=== PATIENT | female | born 1975 | race Caucasian/White ===

== ENCOUNTER 2016-09-28 12:10 | Emergency (ER) | payer OTHER ==
--- NOTE | 2016-09-28 12:35 | CPEKG ---
Heart Rate: 60 RR Interval: 1000 P-R Interval: 144 QRSD Interval: 84 QT Interval: 428 QTC Interval: 428 P Froid: -12 QRS Froid: 28 T Wave Froid: 1 EKG Severity - NORMAL ECG - EKG Impression: SINUS RHYTHM Electronically Signed By: Srini Burrell 28-Sep-2016 14:02:42
--- NOTE | 2016-09-28 12:41 | EDPHY ---
H & P Stated Complaint: Pain in upper mid back, SOB since Wednesday morning. Time Seen by Provider: 09/28/16 12:41 HPI/ROS: CHIEF COMPLAINT: Back pain, dyspnea HISTORY OF PRESENT ILLNESS: The patient presents to the ED for evaluation of mid thoracic back pain for the past several days. The patient has been having associated positional dyspnea with the symptoms as well. The patient denies pleuritic chest pain, asymmetric calf pain or swelling, prior history of PE or DVT. The patient has no significant past medical history. The patient denies recent fever, cough or infectious symptoms. The patient denies rash. She denies additional acute complaints. REVIEW OF SYSTEMS: A comprehensive 10 point review of systems is otherwise negative aside from elements mentioned in the history of present illness. Source: Patient Exam Limitations: No limitations - Personal History LMP (Females 10-55): 1-7 Days Ago Current Tetanus Diphtheria and Acellular Pertussis (TDAP): Yes - Medical/Surgical History Hx Asthma: No Hx Chronic Respiratory Disease: No Hx Diabetes: No Hx Cardiac Disease: No Hx Renal Disease: No Hx Cirrhosis: No Hx Alcoholism: No Hx HIV/AIDS: No Hx Splenectomy or Spleen Trauma: No Other PMH: HTN - Social History Smoking Status: Never smoked - Physical Exam Exam: General Appearance: Alert, no distress Eyes: Pupils equal and round no pallor or injection ENT, Mouth: Mucous membranes moist Respiratory: There are no retractions, lungs are clear to auscultation Cardiovascular: Regular rate and rhythm Gastrointestinal: Abdomen is soft and nontender, no masses, bowel sounds normal Neurological: A&O, normal motor function, normal sensory exam, normal cranial nerves Skin: Warm and dry, no rashes Musculoskeletal: Neck is supple nontender, tenderness through the mid thoracic spine noted on the bilateral thoracic spinal muscles Extremities: symmetrical, full range of motion Constitutional: Initial Vital Signs Temperature (C) 36.5 C 09/28/16 12:11 Heart Rate 69 09/28/16 12:11 Respiratory Rate 16 09/28/16 12:11 Blood Pressure 167/101 H 09/28/16 12:11 O2 Sat (%) 97 09/28/16 12:11 O2 Delivery Mode Room Air Allergies/Adverse Reactions: fluconazole [From Diflucan] Allergy (Mild, Verified 06/27/09 00:49) Home Medications: Medication Instructions Recorded Citalopram [CeleXA 20 MG] 1 tab PO DAILY 11/17/12 Nifedipine 09/28/16 PRILOSEC 09/28/16 Medical Decision Making - Diagnostics EKG Interpretation: EKG: Complete interpretation has been separately recorded in the [employer] archive. Summary impression: Sinus rhythm, rate 60 Imaging: Chest x-ray AP: Images reviewed by myself, negative for acute disease. Also reviewed with radiologist who concurs. ED Course/Re-evaluation: The patient presents to the ED with a several day history of positional dyspnea. The patient's vital signs are stable and she is in no acute distress. Patient's chest x-ray demonstrates no evidence of an acute abnormality specifically showing no evidence of a pneumonia or pneumothorax. The patient's EKG is within normal limits without evidence of arrhythmia. The patient's D- dimer test is negative which I feel adequately excludes pulmonary embolism. The patient was placed on a cardiac specialist throughout her stay in the emergency department. At this point time the etiology of her dyspnea is somewhat uncertain. I do feel that we have confidently excluded pulmonary embolism, myocardial infarction in pneumothorax from the differential diagnosis. The patient has no bronchospasm or evidence of wheezing currently. At this point time I do feel the patient can be discharged home with instructions to return to the ED for markedly worsening symptoms or other concerns. The patient will be provided a prescription for albuterol inhaler in the event she is having a mild component of bronchospasm. Differential Diagnosis: Differential diagnosis considered includes asthma, bronchitis, pneumonia, pulmonary embolism, myocarditis, pericarditis, myocardial infarction - Data Points Laboratory Results: Laboratory Results 09/28/16 12:54 09/28/16 12:54 09/28/16 09/28/16 09/28/16 12:54 12:54 12:54 WBC RBC Hgb Hct MCV MCH MCHC RDW Plt Count MPV Neut % (Auto) Lymph % (Auto) [place] % (Auto) Eos % (Auto) Baso % (Auto) Nucleat RBC Rel Count Absolute Neuts (auto) Absolute Lymphs (auto) Absolute Monos (auto) Absolute Eos (auto) Absolute Basos (auto) Absolute Nucleated RBC Immature Gran % Immature Gran # D-Dimer < 0.27 ug/mLFEU ug/mLFEU (0.00-0.50) Sodium 139 mEq/L mEq/L (134-144) Potassium 4.1 mEq/L mEq/L (3.5-5.2) Chloride 102 mEq/L mEq/L (97-110) Carbon Dioxide 25 mEq/l mEq/l (22-31) Anion Gap 12 mEq/L mEq/L (8-16) BUN 16 mg/dL mg/dL (7-23) Creatinine 0.9 mg/dL mg/dL (0.6-1.0) Estimated GFR > 60 Glucose 80 mg/dL mg/dL (70-100) Calcium 9.9 mg/dL mg/dL (8.5-10.4) Troponin I < 0.012 ng/mL ng/mL (0-0.034) Beta HCG, Qual NEGATIVE 09/28/16 12:54 WBC 6.80 10^3/uL 10^3/uL (3.80-9.50) RBC 4.83 10^6/uL 10^6/uL (4.18-5.33) Hgb 14.6 g/dL g/dL (12.6-16.3) Hct 41.7 % % (38.0-47.0) MCV 86.3 fL fL (81.5-99.8) MCH 30.2 pg pg (27.9-34.1) MCHC 35.0 g/dL g/dL (32.4-36.7) RDW 12.1 % % (11.5-15.2) Plt Count 310 10^3/uL 10^3/uL (150-400) MPV 9.9 fL fL (8.7-11.7) Neut % (Auto) 64.4 % % (39.3-74.2) Lymph % (Auto) 28.8 % % (15.0-45.0) Troup % (Auto) 5.1 % % (4.5-13.0) Eos % (Auto) 1.2 % % (0.6-7.6) Baso % (Auto) 0.4 % % (0.3-1.7) Nucleat RBC Rel Count 0.0 % % (0.0-0.2) Absolute Neuts (auto) 4.37 10^3/uL 10^3/uL (1.70-6.50) Absolute Lymphs (auto) 1.96 10^3/uL 10^3/uL (1.00-3.00) Absolute Monos (auto) 0.35 10^3/uL 10^3/uL (0.30-0.80) Absolute Eos (auto) 0.08 10^3/uL 10^3/uL (0.03-0.40) Absolute Basos (auto) 0.03 10^3/uL 10^3/uL (0.02-0.10) Absolute Nucleated RBC 0.00 10^3/uL 10^3/uL (0-0.01) Immature Gran % 0.1 % % (0.0-1.1) Immature Gran # 0.01 10^3/uL 10^3/uL (0.00-0.10) D-Dimer Sodium Potassium Chloride Carbon Dioxide Anion Gap BUN Creatinine Estimated GFR Glucose Calcium Troponin I Beta HCG, Qual Departure - Departure Disposition: Home, Routine, Self-Care Clinical Impression: Dyspnea Condition: Good Instructions: Dyspnea (ED) Additional Instructions: 1. The workup in the emergency department is reassuring that we see no evidence of a heart attack, collapsed lung, blood clot, significant metabolic abnormality or arrhythmia. 2. I recommend trying an inhaler to use as needed for symptoms of shortness of breath. 3. Please return to the ED for markedly worsening symptoms, chest pain, difficulty breathing or other concerns. 4. Please follow-up with your primary care provider for unimproved symptoms. Referrals: Denisse Wood MD [Primary Care Provider] - As per Instructions
[2016-09-28 13:07] LABS: % IMMATURE GRANULYOCYTES 0.1 % (0.0-1.1); ABSOLUTE IMMATURE GRANULOCYTES 0.01 10^3/uL (0.00-0.10); ADD DIFF? NO; ADD MORPH? NO; ADD SCAN? NO; ATYPICAL LYMPHOCYTE FLAG 10 (0-99); FRAGMENT RBC FLAG 0 (0-99); HEMATOCRIT 41.7 % (38.0-47.0); HEMOGLOBIN 14.6 g/dL (12.6-16.3); LEFT SHIFT FLG 0 (0-99); LIPEMIA HEMOLYSIS FLAG 90 (0-99); MEAN CELL HEMOGLOBIN 30.2 pg (27.9-34.1); MEAN CELL VOLUME 86.3 fL (81.5-99.8); MEAN PLATELET VOLUME 9.9 fL (8.7-11.7); PLATELET CLUMPS FLAG 0 (0-99); PLATELET COUNT 310 10^3/uL (150-400); RED BLOOD CELL COUNT 4.83 10^6/uL (4.18-5.33); RED CELL DISTRIBUTION WIDTH 12.1 % (11.5-15.2)
[2016-09-28 13:20] LABS: ANION GAP 12 mEq/L (8-16); CALCIUM 9.9 mg/dL (8.5-10.4); CARBON DIOXIDE 25 mEq/l (22-31); CHLORIDE 102 mEq/L (97-110); CREATININE 0.9 mg/dL (0.6-1.0); GLOMERULAR FILTRATION RATE > 60; GLUCOSE 80 mg/dL (70-100); POTASSIUM 4.1 mEq/L (3.5-5.2); SODIUM 139 mEq/L (134-144)
[2016-09-28 13:31] LABS: TROPONIN I < 0.012 ng/mL (0-0.034)
[2016-09-28 13:52] VITALS: BP 132/90; PULSE 62; RESP 18; TEMP 98.2; O2SAT 92
== END 2016-09-28 14:00 | disposition home or self-care (01) ==
DX: R06.00 Dyspnea, unspecified (principal); I10 Essential (primary) hypertension

== ENCOUNTER → 2017-06-03 | Outpatient (CLI) | payer OTHER | LOC: FIMAGING 08:52 | PROVIDERS: ATTEND Obstetrics & Gynecology | DX: Z12.31 Encounter for screening mammogram for malignant neoplasm of breast (principal) | CPT/HCPCS: G0202 ==

== ENCOUNTER → 2017-08-03 | Outpatient (CLI) | payer OTHER | LOC: BMCIMAGING 10:36 | PROVIDERS: ATTEND Advanced Practice Midwife | DX: N63.20 Unspecified lump in the left breast, unspecified quadrant (principal) ==